=== PATIENT | male | born 1995 | race Caucasian/White ===

== ENCOUNTER 2017-08-04 13:16 | Inpatient (IN) | payer OTHER ==
[~2017-08-04] VITALS: Ht 182.9 cm; Wt 80.0 kg
--- NOTE | 2017-08-04 14:27 | EMERGENCY ROOM VISIT NOTE ---
History Report prepared by [employer]: Cyndi Shay Under the Supervision of: Dr. Scooby Kaye M.D. First contact with patient: 13:49 Chief Complaint: MENTAL HEALTH EVALUATION Stated Complaint: MR History of Present Illness The patient is a 22 year old male who presents to the Emergency Room for a mental health evaluation. The patient notes that he has had severe anxiety for past couple days. He notes that he feels alienated and isolated. Per top case assembler, the patient is a [employer] student and follows up with [employer] and has been having violent suicidal and homicidal ideations as well as morbid thoughts about killing others. The patient has two roommates who he says he is cordial with. He states he has thoughts about hurting himself but denies having a plan. He has been feeling depressed and has been sleeping through his classes. The patient has been having thoughts of hurting others through a mass shooting. He denies any specific people he is upset with. The patient states he hears his voice and a woman's voice in his mind. He has been hearing these voices for three years. He denies any fevers, abdominal pain, or chest pain, alcohol tobacco or drug use. The patient's mother is coming to the ED and the patient states he has a good relationship with his parent. The patient is is not on medication but he is willing to start taking medications and to be admitted for help. Source of History: patient Position: other (global) Quality: other (mental health evaluation) Modifying Factors (Relieving): other (none) Associated Symptoms: No fevers, No abdominal pain Review of Systems See HPI for pertinent positives & negatives. A total of 10 systems reviewed and were otherwise negative. Past Medical & Surgical Medical Problems: (1) No Known Active Medical Problems Old medical records were reviewed. Nurse's notes were reviewed and I agree with. Social History Smoking Status: Never Smoker Alcohol Use: none Occupation Status: [employer] student Current/Historical Medications No Active Prescriptions or Reported Meds Allergies Coded Allergies: No Known Allergies (Unverified , 08/04/17) Physical Exam Vital Signs Date Time Temp Pulse Resp B/P (MAP) Pulse Ox O2 Delivery O2 Flow Rate FiO2 08/04/17 17:40 78 16 118/65 98 Room Air 08/04/17 13:26 37.1 70 20 123/81 99 Room Air Physical Exam General: Non-ill appearing young cooperative male in no acute distress. HEENT: Normal cephalic atraumatic. Pupils are equal round and reactive to light. Extraocular movements are intact. Oropharynx is pink with moist mucous membranes. No swelling of the mouth lips or tongue. Neck: Supple with a midline trachea. No meningeal signs or stiffness, no JVD or bruits. No Stridor. Chest: Clear to auscultation bilaterally. No wheezes or rhonchi. No increased work of breathing. Heart: regular rate and rhythm. Abdomen: Soft nontender, nondistended without rebound guarding or rigidity. Extremities: No cyanosis clubbing or edema. No calf tenderness or assymetry Spine/Back. Non tender to palpation. No CVA tenderness Skin: Good turgor without rashes. Neurologic exam: Cranial nerves two through 12 are intact. Motor and sensation are intact and symmetrical throughout. Psych: intermittent suicidal and homicidal ideations, hearing voices at times. Medical Decision & Procedures Laboratory Results 08/04/17 14:17 Red Blood Count 5.71, Mean Corpuscular Volume 90.4, Mean Corpuscular Hemoglobin 31.9, Mean Corpuscular Hemoglobin Concent 35.3, Mean Platelet Volume 10.5, Neutrophils (%) (Auto) 62.5, Lymphocytes (%) (Auto) 28.5, Monocytes (%) (Auto) 7.0, Eosinophils (%) (Auto) 1.4, Basophils (%) (Auto) 0.4, Neutrophils # (Auto) 3.05, Lymphocytes # (Auto) 1.39, Monocytes # (Auto) 0.34, Eosinophils # (Auto) 0.07, Basophils # (Auto) 0.02 08/04/17 14:17 Test 08/04/17 13:30 08/04/17 14:17 Urine Opiates Screen NEG (NEG) Urine Methadone, Qualitative NEG (NEG) Urine Barbiturates NEG (NEG) Urine Phencyclidine (PCP) Level NEG (NEG) Ur Amphetamine/Methamphetamine NEG (NEG) MDMA (Ecstasy) Screen NEG (NEG) Urine Benzodiazepines Screen NEG (NEG) Urine Cocaine Metabolite NEG (NEG) Urine Marijuana (THC) NEG (NEG) White Blood Count 4.88 K/uL (4.8-10.8) Red Blood Count 5.71 M/uL (4.7-6.1) Hemoglobin 18.2 g/dL (14.0-18.0) Hematocrit 51.6 % (42-52) Mean Corpuscular Volume 90.4 fL (80-100) Mean Corpuscular Hemoglobin 31.9 pg (25-34) Mean Corpuscular Hemoglobin Concent 35.3 g/dl (32-36) Platelet Count 225 K/uL (130-400) Mean Platelet Volume 10.5 fL (7.4-10.4) Neutrophils (%) (Auto) 62.5 % Lymphocytes (%) (Auto) 28.5 % Monocytes (%) (Auto) 7.0 % Eosinophils (%) (Auto) 1.4 % Basophils (%) (Auto) 0.4 % Neutrophils # (Auto) 3.05 K/uL (1.4-6.5) Lymphocytes # (Auto) 1.39 K/uL (1.2-3.4) Monocytes # (Auto) 0.34 K/uL (0.11-0.59) Eosinophils # (Auto) 0.07 K/uL (0-0.5) Basophils # (Auto) 0.02 K/uL (0-0.2) RDW Standard Deviation 42.8 fL (36.4-46.3) RDW Coefficient of Variation 12.9 % (11.5-14.5) Immature Granulocyte % (Auto) 0.2 % Immature Granulocyte # (Auto) 0.01 K/uL (0.00-0.02) Anion Gap 3.0 mmol/L (3-11) Est Creatinine Clear Calc Drug Dose 111.1 ml/min Estimated GFR () 108.3 Estimated GFR (Non- 93.4 BUN/Creatinine Ratio 10.0 (10-20) Calcium Level 9.0 mg/dl (8.5-10.1) Total Bilirubin 2.0 mg/dl (0.2-1) Direct Bilirubin 0.3 mg/dl (0-0.2) Aspartate Amino Transf (AST/SGOT) 17 U/L (15-37) Alanine Aminotransferase (ALT/SGPT) 29 U/L (12-78) Alkaline Phosphatase 107 U/L (45-117) Total Protein 8.0 gm/dl (6.4-8.2) Albumin 4.4 gm/dl (3.4-5.0) Lipase 182 U/L (73-393) Thyroid Stimulating Hormone (TSH) 1.260 uIu/ml (0.300-4.500) Ethyl Alcohol mg/dL < 3.0 mg/dl (0-3) Laboratory studies as stated above per my review. ED Course 1354: Past medical records reviewed. The patient was evaluated in room A5, and a complete history and physical examination were performed. 1602: The top case assembler is talking to the patient. 1630: 3 south is evaluating the patient. 1734: 3 south is accepting the patient. Medical Decision Differential diagnoses: Depression, anxiety, suicidal ideation, homicidal ideations. This patient comes in as described above. He was brought in after he's been hearing voices and having suicidal and homicidal ideations. He seems very cooperative initially and is voluntary. Blood work was obtained for medical clearance. He does not smoke drink or use drugs he tells me. He has no acute electrolyte or metabolic abnormality. He has nothing to suggest acute toxicologic or infectious process. He has had no trauma. He was further evaluated by our psychiatric case management team. He will be admitted voluntarily to our inpatient psychiatric unit for further treatment and evaluation. Medication Reconcilliation Current Medication List: was personally reviewed by me Blood Pressure Screening Patient's blood pressure: Normal blood pressure Impression Primary Impression: Depression Additional Impressions: Anxiety Homicidal ideations Scribe Attestation The scribe's documentation has been prepared under my direction and personally reviewed by me in its entirety. I confirm that the note above accurately reflects all work, treatment, procedures, and medical decision making performed by me. Departure Information Dispostion Being Evaluated By Hospitalist Prescriptions No Active Prescriptions or Reported Meds Referrals No Doctor, Assigned (PCP) Patient Instructions My [facility] Problem Qualifiers
[2017-08-04 14:36] LABS: BASO % 0.4 %; BASO ABS # 0.02 K/uL (0-0.2); COMPLETE YES; EOS % 1.4 %; HEMATOCRIT 51.6 % (42-52); IG% 0.2 %; LYMPH % 28.5 %; LYMPH ABS # 1.39 K/uL (1.2-3.4); MEAN CELL VOLUME 90.4 fL (80-100); MEAN CORPUSCULAR HEMOGLOBIN 31.9 pg (25-34); MEAN CORPUSCULAR HGB CONC 35.3 g/dl (32-36); MEAN PLATELET VOLUME 10.5 fL (7.4-10.4); NEUT % 62.5 %; PLATELET COUNT 225 K/uL (130-400); RED BLOOD COUNT 5.71 M/uL (4.7-6.1); WHITE BLOOD COUNT 4.88 K/uL (4.8-10.8)
[2017-08-04 14:46] LABS: BENZODIAZEPINE, URINE NEG (NEG); COCAINE,URINE NEG (NEG); PHENCYCLIDINE, URINE NEG (NEG)
[2017-08-04 14:56] LABS: CREATININE 1.12 mg/dl (0.60-1.40); POTASSIUM 4.4 mmol/L (3.5-5.1)
[2017-08-04 15:06] LABS: THYROID STIMULATING HORMONE 1.26 uIu/ml (0.300-4.500)
[2017-08-04] MEDS ORDERED: NURSING VERBAL MED ORDER ONE (17:15)
[2017-08-04 17:40] VITALS: O2SAT 98
[2017-08-04] MEDS ORDERED: ACETAMINOPHEN 325 MG TAB PO PRN (17:45)
[2017-08-04] MEDS ORDERED: MAGNESIUM HYDROXIDE SUSP 30 ML UDC PO PRN (17:45)
[2017-08-04] MEDS ORDERED: SODIUM CHLORIDE 0.65% NA SOLN 45 ML (OCEAN) PRN (17:45)
[2017-08-04] MEDS ORDERED: hydrOXYzine HCL 25 MG TAB PO PRN ×2 (17:45)
[2017-08-04] MEDS ORDERED: BISMUTH SUBSALICYLATE PER ML OMNICELL CHARGE PO PRN (17:45)
[2017-08-04] MEDS ORDERED: ALUMINUM/MAGNESIUM SUSP 30 ML UDC PO PRN (17:45)
[2017-08-04 18:24] VITALS: BP 113/68; PULSE 67; TEMP 36.8; Ht 182.9 cm; Wt 80.0 kg
[2017-08-05 06:58] VITALS: BP 106/66; PULSE 65; PULSE 93; TEMP 36.5
[2017-08-05] MEDS ORDERED: BENZTROPINE MESYLATE 1 MG TAB PO PRN (10:45)
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
[2017-08-05] MEDS: RISPERIDONE 1 MG TAB PO PRN (15:40)
[2017-08-05] MEDS ORDERED: RISPERIDONE 1 MG TAB PO SCH (22:00)
[2017-08-06 06:49] VITALS: BP_SYST 104; BP_SYST 115; BP_DIAS 65; BP_DIAS 68; PULSE 101; PULSE 64; TEMP 36.4
[2017-08-06 08:35] LABS: CHOLESTEROL/HDL RATIO 3.4
[2017-08-06] MEDS: RISPERIDONE 1 MG TAB PO PRN (16:40)
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
[2017-08-06] MEDS ORDERED: RISPERIDONE 1 MG TAB PO SCH (22:00)
[2017-08-07 06:51] VITALS: BP_SYST 97; BP_SYST 99; BP_DIAS 57; BP_DIAS 60; PULSE 66; PULSE 97; TEMP 36.3
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
[2017-08-07] MEDS: RISPERIDONE 1 MG TAB PO SCH (21:41)
[2017-08-08 06:46] VITALS: BP_SYST 101; BP_SYST 111; BP_DIAS 64; BP_DIAS 67; PULSE 80; PULSE 93; TEMP 36.4
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
[2017-08-08] MEDS: RISPERIDONE 1 MG TAB PO SCH (21:23)
[2017-08-09 06:46] VITALS: BP_SYST 104; BP_SYST 99; BP_DIAS 61; BP_DIAS 62; PULSE 69; PULSE 98; TEMP 36.4
--- NOTE | 2017-08-09 13:26 | Psychiatric Progress Notes ---
Progress Note Date of Service Aug 09, 2017. Interval History Adal Mahoney is a 22-year-old male [employer] who lives [place] campus, his parents live in [place], [place]. Adal Mahoney was admitted on a 201 voluntary commitment. Patient is admitted from home after [facility] therapist recommended he go to the ED for homicidal thoughts and plans. The patient was brought to the ED by [employer] police. Chief Complaint "Going pretty well". Subjective Patient was seen & assessed interval progress reviewed with Nursing. Staff report the patient is often vague when answering questions, but reports that his symptoms are improving. He continues to endorse auditory hallucinations of a "soothing female voice," which he likes, and does not want to lose. The high school social science teacher spoke to his mother, who is trying to normalize his symptoms. His parents are staying locally until he is discharged, and support him returning to school. They would like to attend his meeting with student care and advocacy after discharge. His mother also agreed to secure guns in the home so that the patient would not have access to them. Today the patient states he is doing well, has been talking about "different social skills for one to develop, what to expect and not to expect." He says this applies to him because he has always had difficulty developing relationships, and would like to be better at that. He struggles with starting and continuing conversation, but has been able to practice it here. His auditory hallucinations continue to decrease, and for the past day "only pop up a little bit," and he told it "to shush." He says he likes the female voice, but "not the bad voice." He was able to tell the voice to leave him alone, and it worked. He says it will say "a bunch of garbage." Denies that it commands him. Thinks medication is also helping to slow and clear his thoughts. Denies any thoughts about hurting himself or anyone else since yesterday, and the thoughts are getting less intense. Denies side effects to medication. He feels he will be ready to go home tomorrow, and asks appropriate questions about the discharge process. Review of Systems Respiratory: + problem reported (sinuses felt clogged last night, better now) Abdomen: + problem reported Neurologic: No memory loss, No paralysis, No weakness, No numbness/tingling, No vertigo, No balance problems, No problem reported Sleep Information Total Hours of Sleep: 7.00 Meal Information Percent of Breakfast Consumed: 100 Percent of Lunch Consumed: 100 Percent of Dinner Consumed: 100 Mental Status Exam During interview pt is: alert and oriented, cooperative, other (calm, polite) Appearance: appropriately dressed, appropriately groomed Eye contact is: good Motor behavior is: steady gait & station, no abnormal motor movements Speech: normal in rate, rhythm & volume Affect: euthymic (incongruent to subject matter at times (for example, when discussing thoughts of harming others)) Mood is: other ("pretty good") Thought process: goal directed (at times answers in a vague way that is difficult to follow, but is able to clarify when asked) Thought content: reality based without delusions Suicidal thought are: denied Homicidal thoughts are: denied Hallucinations: auditory (auditory hallucinations of voices, which have decreased in frequency and intensity since admission), denies visual Cognition: memory grossly intact, attention grossly intact, language grossly intact Intelligence estimated to be: consistent with level of education Insight: limited Judgement: fair Summary of Past History Eval 2014 records given to unit. In summary, eval indicated past concerns of Autism and ADHD had been previously ruled out without clarification of full extent of doing so with heel lift gouger in 2014 being unable to fully rule out Asperger's diagnosis with noticing some speech and language deficits and not seeing concerns of ADHD. Psychoeducational report from February 2014 by Chandana Valentine, Ph.D. reviewed. Evaluation was to identify underlying causes of challenges with social and educational functioning. The patient was 18 and a high school senior at this time. He was referred by his parents and a previous therapist, due to concerns for autism spectrum disorder, and the family wondered about ADHD. He had a history of previously diagnosed speech and language processing issues. The family wanted him to be given educational accommodations in college. His parents reported that he met most developmental milestones on time, but had speech problems where he appeared to understand but could only speak individual words at age 5. He received speech therapy in first grade. He did not receive any other special services in school, had a 3.5 GPA during his senior year in high school. He had a good relationship with his family, and some mild challenges with peers, as he did not have many close friends. His full scale IQ was 112, although he scored in the very superior or gifted range with perceptional reasoning, and in the average range for other domains. Testing confirmed that his slower processing speed was not related to ADHD, and did not find evidence of autism spectrum disorder. Recommendations for accommodations were made. Impression 22 y/o male with 2-3 year history of auditory hallucinations predating mood symptoms with increase in morbid preoccupation around shootings in the media. He denies active intent but has been in "planning" stage, in that he researches tactical gear, gas masks, etc online and seems socially disconnected with lack of empathy around why such acts/comments are inappropriate. His affect is grossly inappropriate to the content of his thoughts and there is suggestion of paranoia. Differential includes unspecified psychotic disorder, depression with psychotic features, OCD, and other cause of psychosis. There is no evidence of kylah. He denies a history of OCD. Plan (1) Unspecified psychosis am following admission (08/05)-- The patient is admitted to [facility]) on q 15 min checks (behavioral with suicide precautions) for safety. The patient will participate in group, recreational and milieu therapies and will be offered additional individual and family sessions as clinically appropriate. will start Risperdal 1mg qHS as mood stabilization and to target voices. Risks/ benefits/alternative treatments were reviewed re: antipsychotics for mood and/ or psychosis. Discussion included but was not limited to metabolic side effects , risks of TD and suicidal thoughts. Baseline AIMS=0. Fasting glucose and lipid panel ordered (if not on file) for baseline monitoring. Risperdal 1mg BID prn written for anxiety/agitation; Cogentin 1mg BID prn muscle spasm. FABIO for communication with [facility]/[place] for safety planning around his return to campus 08/06 - raised risperdal to 1.5mg hs plus 1mg prn bid doses maintained, consider adding SSRI for depressive symptoms and obsessive compulsive aspects of psychotic processes. will focus on risperdal for now but if depressive symptoms remain and/or more OCD aspects are clarified will consider adding a SSRI 08/07 - raised risperdal to 2mg hs maintaining 1mg prn up to bid doses for now. nl fasting labs reviewed with pt given question of autism spectrum concerns in 2013, it is possible that pt has been having prodromal symptoms that have progressed to current symptoms over time. Pt's psychotic presentation does have a obsessive presentation to it which is common in psychosis but does warrant continue exploration for OCD as a comorbid concern. mood is improving, intrusive images and processing resolving as presentation improving, holding any SSRI for now. reviewed previous 2013 assessment 08/08 - symptoms are improving, continue risperidone 2 mg daily at bedtime. - Second family meeting to be scheduled with parents to review the patient's discharge plans, with specific emphasis on the safety plan, including recommendations that the family's guns be kept locked and secured so that he would not have access to them. - Outpatient follow-up being arranged at [facility] with both a therapist and psychiatrist. - Continue participation in unit groups and programming, working on healthy coping skills and his discharge safety plan. 08/09 - Symptoms continued to improve, and we are working on discharge planning. Parents have confirmed that they will lock the guns and he will not have access to them. Discharge / Aftercare Planning Primary Care Physician: Name: [facility] Appointment Notes: As needed Psychiatrist: Name: CARLOS Appointment Notes: You will be scheduled for follow up for meds after your appt with Teo. Therapist: Name: Teo Denney [facility] Date of Appointment: Aug 11, 2017 Time of Appointment: 4pm Visit Code E&M Code: 89163 Inventory Assets Strengths: reports positive relationship with family, willingness for treatment Needs: improve social skills and ability to redirect thoughts Risk Factors Assessment Male: Yes : Yes /single/: Yes Higher / Fall in social status: No Access to guns: No Health problems: No Mental Health Diagnoses: Yes Substance use disorders: No Previous attempt: No Previous psychiatric stay: No Hopelessness: No Protective Factors Assessment Jain beliefs: Yes : No Responsible for young children: No Employed: No Stable relationships: Yes Supportive family: Yes Good rapport with provider: Yes Data Vital Signs Last 24 Hrs: Date Time Temp Pulse Resp B/P (MAP) Pulse Ox O2 Delivery O2 Flow Rate FiO2 08/09/17 06:46 36.4 69 16 104/62 98 99/61 Meds Administered Last 24 Hrs: Meds Administered (Past 24Hrs) Medications (Trade) Dose Ordered Sig/Janet Route Start Time Stop Time Status Last Admin Dose Admin Risperidone (Risperdal Tab) 2 mg HS PO 08/07/17 22:00 09/04/17 21:59 08/08/17 21:23 2 MG
[2017-08-09] MEDS: RISPERIDONE 1 MG TAB PO SCH (21:44)
[2017-08-10 06:54] VITALS: BP_SYST 111; BP_SYST 113; BP_DIAS 60; BP_DIAS 67; PULSE 52; PULSE 91; TEMP 36.4
[2017-08-10] MEDS ORDERED: RISP2TAB21 PO (09:03)
[2017-08-10] MEDS ORDERED: RSP1 PO (09:04)
--- NOTE | 2017-08-10 09:32 | Discharge Instructions ---
Discharge Information Report Includes Report will include the: Discharge Instructions & Summary Admission Admission Date / Time: Aug 04, 2017 at 17:18 Reason for Admission: Major Depression With Psychotic Features Discharge Discharge Diagnosis / Problem: Psychosis not otherwise specified Condition at Discharge: Good Discharge Goals Goal(s): Improve function, Improve disease control, Learn about illness, Therapeutic intervention Activity Recommendations Activity Limitations: per Instructions/Follow-up section . Instructions / Follow-Up Instructions / Follow-Up . SPECIAL CARE INSTRUCTIONS: 1. Follow through with your scheduled aftercare appointments. If unable to keep an appointment, please call to reschedule. 2. Take your medication only as prescribed. Medication should not be changed or stopped without the approval of your doctor. In the event of worsening symptoms or concerns about side effects, contact your doctor immediately. 3. Utilize new healthy coping skills, anger management skills, and stress management skills learned during your hospitalization. Journal feelings and process them with a support person. Identify stressors or situations that may result in relapse, deterioration or inappropriate behaviors and develop a plan to deal with those issues. 4. If your coping skills are ineffective and you are in crisis, contact your outpatient providers for direction. If unable to reach your providers, please call the CAN HELP LINE AT or go to the closest Emergency Room. 5. Avoid alcohol and un-prescribed drugs. 6. You have been provided with the Mental Health Advance Directives Pamphlet for your review. AFTERCARE APPOINTMENTS: * Please call your insurance company prior to your scheduled appointment to confirm your aftercare providers are covered. Take your insurance information to your appointments. . Discharge / Aftercare Planning Primary Care Physician: Name: [facility] Appointment Notes: As needed Psychiatrist: Name: CARLOS Appointment Notes: You will be scheduled for follow up for meds after your appt with Teo. Therapist: Name Of Therapist: Teo Denney CAPS Date of Appointment: Aug 11, 2017 Time of Appointment: 4pm Other: Name of Appointment #1: [facility]ocacy Appointment #1 Notes: [address] [place], [place] [address]e [facility] . Follow-Up Care Plan for Follow-Up Care: See above. Current Hospital Diet Patient's current hospital diet: Regular Diet Discharge Diet Recommended Diet: Regular Diet Procedures Procedures Performed: No Pending Studies Pending Studies at Discharge: No Medical Emergencies . Who to Call and When: Medical Emergencies: For questions or emergencies related to your hospital stay, please contact the Inpatient Behavioral Health Unit at [phone]. A armor reconnaissance vehicle crewman is on-call 18/04 for the Behavioral Health Unit for emergencies At any time you feel your situation is an emergency, you may also call 911 immediately. . Non-Emergent Contact Non-Emergency issues call your: Psychiatrist, Therapist Advance Directives Existing Advance Directive: No Do You Have an Existing Mental: No Existing Living Will: No Existing Power of Production Lapping Machine Operator: No Advance Directives Info Given: To Pt/S.O. Advance Directives Reason: Declines as Mental Health Visit. 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. Pt reportedly went for meeting with his financial advisor trainee and expressed increased anxiety for the past week. Psychiatric evaluation was recommended after pt reported voices that suggested the pt commit a mass shooting and pt admitted some internet research into mass shootings, tactile defense, and ways to protect oneself. Pt reports that he feels has chronically felt isolated and alienated within the context of social situations. He reports he often feels a "sensation of being unwelcome" around his fellow classmates, even those he knows well. I feels he is a "complex person" and that most people are "unable to relate" to him, though he greatly desires this type of companionship. He focuses heavily on an individual's response when he does "good things" (ex. helping someone fix their bike) and feels discouraged when he does not receive the "affection" he desires for his deeds. He reports, despite meeting with a young-adult [employer] group 3 + times a week, that he "sometimes feels connected with people, and at other times not at all". He denies lillian paranoia but makes comments about needing to "protect himself". Pt reports depressive symptoms for the past "several years" with anxiety worsening over the last week. He states he has been hearing voices in his head for the past three years. One voice, a female, is calm and comforting and "helpful when I'm not receiving the affection I desire from people". The other , a male voice, the patient describes as sounding like himself is "evil" and states this voice prompts him to consider acts of violence. He believes that he is suggestible to new media but stops short of endorsing ideas of reference. The pt denies specific "commands" but states, when prompted by news stories or social media, with say "that's something you could do". Reports, "the voice with show me what I could do as opposed to telling me to do it." Pt reports the voices are almost always referencing a a present event as a trigger. Pt denies evolution in these voices over time. Pt reported to staff that he had been researching mass shootings on the internet, but upon evaluation reports his curiosity is in terms of defense - "How would I protect myself, how could I protect someone else if something happened?". When asked why he didn't act on these thoughts he stated, "It was just early planning stages". He states he has been missing classes lately both due to issues with operating his alarm as well as occasionally feeling he "lacks the attention necessary to get through class" that day. He denies consequences to his absences thus far and states he is still doing well in school. Most recent GPA is a 2.8 and he reports he is on track to graduate in January despite dropping one class due to the additional stress. Pt reports he would most like to find ways to "start conversations with people so I can feel connected". He is interested in taking steps to engage with others more fully and is oriented to future goals. 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 Pt has minimal psychiatric history with no current diagnosis or medications. He has been seen by a therapist "Daniela" while at [facility] in [place], and is now following with Teo Candelario at [facility]. Pt has no prior inpatient hospitalizations and no past psychiatrist. He admits to previous consideration of suicide attempt, but denies ever having a plan or taking steps to carry out. Denies current SI/HI, visual hallucinations, paranoia, OCD, or manic symptoms. Admission Exam Per the Admitting provider: Please see admission H&P. Consultations None Hospital Course (1) Unspecified psychosis am following admission (08/05)-- The patient [facility] ([facility] health unit) on q 15 min checks (behavioral with suicide precautions) for safety. The patient will participate in group, recreational and milieu therapies and will be offered additional individual and family sessions as clinically appropriate. will start Risperdal 1mg qHS as mood stabilization and to target voices. Risks/ benefits/alternative treatments were reviewed re: antipsychotics for mood and/ or psychosis. Discussion included but was not limited to metabolic side effects , risks of TD and suicidal thoughts. Baseline AIMS=0. Fasting glucose and lipid panel ordered (if not on file) for baseline monitoring. Risperdal 1mg BID prn written for anxiety/agitation; Cogentin 1mg BID prn muscle spasm. FABIO for communication with [facility] for safety planning around his return to campus 08/06 - raised risperdal to 1.5mg hs plus 1mg prn bid doses maintained, consider adding SSRI for depressive symptoms and obsessive compulsive aspects of psychotic processes. will focus on risperdal for now but if depressive symptoms remain and/or more OCD aspects are clarified will consider adding a SSRI 08/07 - raised risperdal to 2mg hs maintaining 1mg prn up to bid doses for now. nl fasting labs reviewed with pt given question of autism spectrum concerns in 2013, it is possible that pt has been having prodromal symptoms that have progressed to current symptoms over time. Pt's psychotic presentation does have a obsessive presentation to it which is common in psychosis but does warrant continue exploration for OCD as a comorbid concern. mood is improving, intrusive images and processing resolving as presentation improving, holding any SSRI for now. reviewed previous 2013 assessment 08/08 - symptoms are improving, continue risperidone 2 mg daily at bedtime. - Second family meeting to be scheduled with parents to review the patient's discharge plans, with specific emphasis on the safety plan, including recommendations that the family's guns be kept locked and secured so that he would not have access to them. - Outpatient follow-up being arranged at [facility] with both a therapist and psychiatrist. - Continue participation in unit groups and programming, working on healthy coping skills and his discharge safety plan. 08/09 - Symptoms continued to improve, and we are working on discharge planning. Parents have confirmed that they will lock the guns and he will not have access to them. 08/10 - Auditory hallucinations of voices are significantly improved, only present briefly, and less intense. Patient feels they are manageable at their current level, and requested to have a prn of risperidone available if needed. Rx provided for risperidone 2mg qhs and 1mg bid prn hallucinations/anxiety. - Parents will fruit or nut picker today. Encouraged patient to attend meeting with [employer] [facility]. - Has appointment with therapist Teo Chavez today, and will be assigned a psychiatrist at [facility]. SW to call [facility] and determine if there are any other mental health services available through the school that he might benefit from - groups or programs to assist with socialization? Risk Factors Assessment Male: Yes : Yes /single/: Yes Higher / Fall in social status: No Access to guns: No Health problems: No Mental Health Diagnoses: Yes Substance use disorders: No Previous attempt: No Family history of suicide: No Previous psychiatric stay: No Hopelessness: No Smoker: No Protective Factors Assessment Yazidi beliefs: Yes : No Responsible for young children: No Employed: No Stable relationships: Yes Supportive family: Yes Good rapport with provider: Yes Absence of risk factors above: Yes (Risk factors were mitigated by admission to the inpatient unit, treating psychotic symptoms with antipsychotic medication , involving the patient in group and therapy on the unit, involving his parents in his treatment and having a family meeting, ensuring that their guns are locked and secured and that the patient will not have access to them, coordinating with the [facility] and ensuring outpatient mental health services , exploring options for additional supports on campus, educating the patient about his symptoms and diagnosis and the recommended treatment, working on healthy coping skills and a discharge safety plan. The patient's auditory hallucinations have improved significantly, and he feels they are manageable at their current level. He has been calm and cooperative throughout his stay, is denying thoughts of harming himself or others, and is able to review his safety plan in detail. He never identified specific target, so there is no duty to warn. He feels he will be able to seek help if his intrusive thoughts of harming himself or others return, and as he is no longer at acute risk of harm to himself or others, he can be discharged and managed as an outpatient at this time.) Day of Discharge Assessment Hospital course: On admission, the patient was started on risperidone 1 mg daily at bedtime for psychosis. He tolerated this well, and was increased to 2 mg daily at bedtime. He also had an as needed dose of 1 mg. Collateral information was gathered from his parents and from a psychoeducational report from February 2014, which was performed 2 try to identify underlying causes of his challenges with social and educational functioning and to make recommendations for academic accommodations in preparation for him to go to college. The psychological testing performed did not identify ADHD or autism spectrum disorder as underlying causes of his issues. It is possible that the patient had been experiencing prodromal symptoms that were not detected because of his limited social functioning, and that his current symptoms represent a primary thought disorder. He did not appear to have significant mood symptoms in the hospital, and a primary mood disorder was felt to be less likely. There was an obsessive component noted with his intrusive thoughts of harming others, which raised the possibility of comorbid OCD, although he did not meet full criteria for this. Care was coordinate it with the [facility], including his therapist at [facility] and he was encouraged to follow-up with the office of student care and advocacy. A family meeting was held with the patient and his parents on 08/05/2017. His mother reported that he had been diagnosed with a language processing disorder and thought that he might benefit from disability services and a wildlife conservation officer. The patient described difficulties with social interactions and a history of being bullied in school. He was able to explain his recent symptoms, including auditory hallucinations of a female voice and a male voice, and negative thoughts. He talked about his concerns about social change and his baptist beliefs. His parents confirm that there was no family history of a primary thought disorder, although mother has had issues with anxiety and father with anger. Options for a medical withdrawal versus returning to school were explored, and the patient stated he wanted to continue with school. His parents were supportive of him taking medication. His parents described him as a kind and gentle person who has a tendency to be taken advantage of or bullied. They confirmed that he does not have guns or weapons, and they agreed to lock the firearms that they have at home so that he would not have access. Adal did well on the unit, interacted appropriately with staff and peers, and participated in groups and therapy on the unit. He had visits from his parents and a friend, and felt they were supportive. He spends his free time out of his room playing games with peers or drawing. He consistently reported good mood, and did not appear depressed. He was performing his ADLs independently, eating and sleeping well, and maintained good hygiene and grooming. His auditory hallucinations decreased in both frequency and intensity throughout the course of his stay, and he felt able to manage them by the time of discharge. He was able to talk in depth about his thoughts of harming others, and stated that he did not think he would ever act on these thoughts. He was encouraged to follow up with his outpatient therapist and to explore ways to increase his socialization on campus and to continue to work on his social skills, as he did very well on the unit socializing with peers, but indicated that this has been a long-standing area of difficulty for him. Day of discharge assessment: The patient states that his mood is "good," and he has not had suicidal thoughts here. He feels the medication is helping for his thoughts, and states that the voices have decreased and are present only briefly during the day, and he feels able to tell them to stop, and they leave him alone. He denies command auditory hallucinations and thoughts of harming others. He denies paranoia, ideas of reference, thought blocking, and disorganized thoughts. He denies side effects to the medication, and would like to continue it after discharge. He is requesting to have a when necessary dose available as well in case he needs it. He is able to review his safety plan in detail, and denies any safety concerns with discharge today. His parents will be picking him up, and he will be following up with his outpatient therapist tomorrow. He is looking forward to returning to school, and will be going home for the winter break. He recognizes that developing relationships with others has been difficult for him and is something he wants to continue to work on. Well nourished, well developed WM appearing stated age. Casually dressed and adequately groomed. Calm and cooperative. Seated in NAD, with fair eye contact and no abnormal movements. Speech is normal rate, volume, and tone. Mood is "good," and affect is stable and congruent. Thoughts are linear, logical and goal directed. The patient denied suicidal and homicidal ideation and was able to safety plan. No paranoia or delusions. Auditory hallucinations are much improved, and present only briefly during the last couple of days. He did not appear to be responding to internal stimuli. Cognition was grossly intact. Alert and oriented to person, place and time. Intelligence is consistent with level of education. Insight and and judgment are fair. Laboratory Test 08/04/17 13:30 08/04/17 14:17 08/06/17 07:24 Urine Opiates Screen NEG Urine Methadone, Qualitative NEG Urine Barbiturates NEG Urine Phencyclidine (PCP) Level NEG Ur Amphetamine/Methamphetamine NEG MDMA (Ecstasy) Screen NEG Urine Benzodiazepines Screen NEG Urine Cocaine Metabolite NEG Urine Marijuana (THC) NEG White Blood Count 4.88 Red Blood Count 5.71 Hemoglobin 18.2 Hematocrit 51.6 Mean Corpuscular Volume 90.4 Mean Corpuscular Hemoglobin 31.9 Mean Corpuscular Hemoglobin Concent 35.3 Platelet Count 225 Mean Platelet Volume 10.5 Neutrophils (%) (Auto) 62.5 Lymphocytes (%) (Auto) 28.5 Monocytes (%) (Auto) 7.0 Eosinophils (%) (Auto) 1.4 Basophils (%) (Auto) 0.4 Neutrophils # (Auto) 3.05 Lymphocytes # (Auto) 1.39 Monocytes # (Auto) 0.34 Eosinophils # (Auto) 0.07 Basophils # (Auto) 0.02 RDW Standard Deviation 42.8 RDW Coefficient of Variation 12.9 Immature Granulocyte % (Auto) 0.2 Immature Granulocyte # (Auto) 0.01 Sodium Level 137 Potassium Level 4.4 Chloride Level 104 Carbon Dioxide Level 30 Anion Gap 3.0 Blood Urea Nitrogen 11 Creatinine 1.12 Est Creatinine Clear Calc Drug Dose 111.1 Estimated GFR () 108.3 Estimated GFR (Non- 93.4 BUN/Creatinine Ratio 10.0 Random Glucose 88 Calcium Level 9.0 Total Bilirubin 2.0 Direct Bilirubin 0.3 Aspartate Amino Transferase (AST) 17 Alanine Aminotransferase (ALT) 29 Alkaline Phosphatase 107 Total Protein 8.0 Albumin 4.4 Lipase 182 Thyroid Stimulating Hormone (TSH) 1.260 Ethyl Alcohol mg/dL < 3.0 Fasting Glucose 87 Triglycerides Level 78 Cholesterol Level 183 HDL Cholesterol 54 LDL Cholesterol, Calculated 113 VLDL Cholesterol, Calculated 16 Cholesterol/HDL Ratio 3.4 Total Time Total Time Spent (min): Greater than 30 minutes Total Time Included: examination of the patient, discharge planning, medication reconciliation, and (treatment team discussion) Tobacco Cessation at Discharge Smoking Status: Never Smoker FDA approved Prescription: non-smoker
== END 2017-08-10 11:25 | disposition home or self-care (01) | DRG 885 ==
LOC: C.EDA 13:20 → C.MHU 17:18
PROVIDERS: ADMIT Psychiatry & Neurology Psychiatry; ATTEND Psychiatry & Neurology Child & Adolescent Psychiatry
DX: F29 Unspecified psychosis not due to a substance or known physiological condition (principal)

== ENCOUNTER 2017-10-10 11:15 | Emergency (ER) | payer BC, OTHER ==
[~2017-10-10] VITALS: Ht 182.9 cm; Wt 82.4 kg
[~2017-10-10 11:15] MED LIST: RISP2TAB21 PO; RSP1 PO
[2017-10-10 11:18] VITALS: TEMP 36.7; Ht 182.9 cm; Wt 82.4 kg
[2017-10-10] MEDS ORDERED: OPTIRAY 320 IV PRN (12:00)
--- NOTE | 2017-10-10 12:07 | DIAGNOSTIC IMAGING REPORT ---
CHEST ONE VIEW PORTABLE HISTORY: 22 years-old Male CHEST PAIN acute atypical chest pain COMPARISON: None available TECHNIQUE: AP view of the chest FINDINGS: The cardiomediastinal and hilar silhouettes are within normal limits. No pneumothorax, pleural effusion, focal airspace consolidation or overt pulmonary edema. Bones of the chest appear grossly intact. IMPRESSION: No acute process. The above report was generated using voice recognition software. It may contain grammatical, syntax or spelling errors. Electronically signed by: Reji Chang M.D. 10/10/2017 12:06 PM Dictated Date/Time: 10/10/2017 12:05 PM
[2017-10-10] MEDS ORDERED: ESCI1TAB6 PO (12:14)
[2017-10-10 12:18] LABS: BASO % 0.4 %; BASO ABS # 0.03 K/uL (0-0.2); EOS % 0.3 %; EOS ABS # 0.02 K/uL (0-0.5); HEMATOCRIT 47.8 % (42-52); HEMOGLOBIN 16.3 g/dL (14.0-18.0); IG# 0.02 K/uL (0.00-0.02); LYMPH % 13.8 %; LYMPH ABS # 0.95 K/uL (1.2-3.4); MEAN CELL VOLUME 90.2 fL (80-100); MEAN CORPUSCULAR HEMOGLOBIN 30.8 pg (25-34); MEAN CORPUSCULAR HGB CONC 34.1 g/dl (32-36); MEAN PLATELET VOLUME 10.3 fL (7.4-10.4); MONO % 4.8 %; MONO ABS # 0.33 K/uL (0.11-0.59); NEUT % 80.4 %; NEUT ABS # 5.53 K/uL (1.4-6.5); PLATELET COUNT 228 K/uL (130-400); RED CELL DISTRIBUTION WIDTH CV 12.9 % (11.5-14.5); RED CELL DISTRIBUTION WIDTH SD 42.1 fL (36.4-46.3); WHITE BLOOD COUNT 6.88 K/uL (4.8-10.8)
[2017-10-10 12:22] LABS: BLOOD UREA NITROGEN 13 mg/dl (7-18); CALCIUM 9.5 mg/dl (8.5-10.1); CARBON DIOXIDE 28 mmol/L (21-32); CREATININE 1.11 mg/dl (0.60-1.40); GLUCOSE 92 mg/dl (70-99); POTASSIUM 3.9 mmol/L (3.5-5.1); SODIUM 137 mmol/L (136-145)
[2017-10-10 12:45] LABS: INR 1.1 (0.9-1.1); PTT PATIENT 26.1 SECONDS (21.0-31.0)
--- NOTE | 2017-10-10 12:49 | EMERGENCY ROOM VISIT NOTE ---
History Report prepared by Boyibsilvia: Ottoniel Plasencia Under the Supervision of: Dr. Wing Santos M.D. First contact with patient: 11:27 Chief Complaint: CHEST PAIN Stated Complaint: TIGHTNESS IN CHEST (HEART) BLOOD WHEN CLEARING RAMON History of Present Illness The patient is a 22 year old white male with a past medical history of depression who presents to the ED with a cc of persistent chest pain beginning a week ago. Describes his pain as a feeling of "pressure". Positive cough. Has noticed small amounts of dried blood in his cough. Negative nausea, vomiting or SOB. He has taken Zantac for his pain. Pain comes on randomly. Pain improves with exertion. Not on blood thinners. Patient is on Lexapro and Risperidone. Source of History: patient Onset: a week ago Position: chest Quality: pressure Timing: other (persistent) Modifying Factors (Relieving): exertion Associated Symptoms: + cough, No SOB, No nausea, No vomiting Review of Systems See HPI for pertinent positives and negatives. A total of ten systems were reviewed and were otherwise negative. Past Medical & Surgical Medical Problems: (1) Depression (2) Unspecified psychosis Family History No pertinent family history stated. Social History Smoking Status: Never Smoker Alcohol Use: none Occupation Status: [employer] student Current/Historical Medications Scheduled Escitalopram Oxalate (Lexapro), 5 MG PO DAILY Risperidone (Risperdal), 1 TAB PO HS Scheduled PRN Risperidone (Risperidone), 1 MG PO BID PRN for hallucinations/anxiety Allergies Coded Allergies: No Known Allergies (Unverified , 08/04/17) Physical Exam Vital Signs Date Time Temp Pulse Resp B/P (MAP) Pulse Ox O2 Delivery O2 Flow Rate FiO2 10/10/17 12:59 68 16 104/51 100 Room Air 10/10/17 12:08 69 10/10/17 11:36 Room Air 10/10/17 11:25 Room Air 10/10/17 11:18 36.7 94 20 117/76 97 Room Air Physical Exam GENERAL: Awake, alert, well-appearing, NAD HENT: Normocephalic, atraumatic. EYES: Normal conjunctiva. Sclera non-icteric. NECK: Supple. No nuchal rigidity. FROM. RESPIRATORY: CTAB, no rhonchi, wheezing, crackles CARDIAC: RRR, no MRG ABDOMEN: Soft, NTND, BS+ MSK: No chest wall TTP, no LE edema NEURO: GCS 15, CN 2-12 intact, moves all 4s on command SKIN: No rash or jaundice noted. Medical Decision & Procedures ER Provider Diagnostic Interpretation: Radiology results as stated below per my review and radiologist interpretation: (CHEST FOR PE) ANGIO WITH FINDINGS: CTA: There is adequate opacification of the pulmonary arteries to the level of the subsegmental branches without convincing evidence of acute pulmonary embolism. thoracic aorta Heart size is normal. CT CHEST: No dominant thyroid nodule is seen, however the thyroid appears mildly heterogeneous. Moderate symmetric bilateral gynecomastia. No pathologically adenopathy by CT size criteria. Mildly prominent AP window lymph nodes are seen measuring up to 8 mm. Residual thymic tissue of the anterior mediastinum. No pneumothorax. Mild dependent subsegmental groundglass opacities suggest atelectasis with trace left pleural effusion. Central airways are patent. The imaged upper abdominal structures are normal. The osseous structures appear intact. IMPRESSION: 1. No acute aortic pathology or evidence of pulmonary thromboembolic disease. 2. Trace left pleural effusion with mild subsegmental dependent bibasilar atelectasis. The above report was generated using voice recognition software. It may contain grammatical, syntax or spelling errors. Electronically signed by: Reji Chang M.D. 10/10/2017 12:53 PM CHEST ONE VIEW PORTABLE FINDINGS: The cardiomediastinal and hilar silhouettes are within normal limits. No pneumothorax, pleural effusion, focal airspace consolidation or overt pulmonary edema. Bones of the chest appear grossly intact. IMPRESSION: No acute process. The above report was generated using voice recognition software. It may contain grammatical, syntax or spelling errors. Electronically signed by: Reji Chang M.D. 10/10/2017 12:06 PM Laboratory Results 10/10/17 11:30 Red Blood Count 5.30, Mean Corpuscular Volume 90.2, Mean Corpuscular Hemoglobin 30.8, Mean Corpuscular Hemoglobin Concent 34.1, Mean Platelet Volume 10.3, Neutrophils (%) (Auto) 80.4, Lymphocytes (%) (Auto) 13.8, Monocytes (%) (Auto) 4.8, Eosinophils (%) (Auto) 0.3, Basophils (%) (Auto) 0.4, Neutrophils # (Auto) 5.53, Lymphocytes # (Auto) 0.95, Monocytes # (Auto) 0.33, Eosinophils # (Auto) 0.02, Basophils # (Auto) 0.03 10/10/17 11:30 Test 10/10/17 11:30 White Blood Count 6.88 K/uL (4.8-10.8) Red Blood Count 5.30 M/uL (4.7-6.1) Hemoglobin 16.3 g/dL (14.0-18.0) Hematocrit 47.8 % (42-52) Mean Corpuscular Volume 90.2 fL (80-100) Mean Corpuscular Hemoglobin 30.8 pg (25-34) Mean Corpuscular Hemoglobin Concent 34.1 g/dl (32-36) Platelet Count 228 K/uL (130-400) Mean Platelet Volume 10.3 fL (7.4-10.4) Neutrophils (%) (Auto) 80.4 % Lymphocytes (%) (Auto) 13.8 % Monocytes (%) (Auto) 4.8 % Eosinophils (%) (Auto) 0.3 % Basophils (%) (Auto) 0.4 % Neutrophils # (Auto) 5.53 K/uL (1.4-6.5) Lymphocytes # (Auto) 0.95 K/uL (1.2-3.4) Monocytes # (Auto) 0.33 K/uL (0.11-0.59) Eosinophils # (Auto) 0.02 K/uL (0-0.5) Basophils # (Auto) 0.03 K/uL (0-0.2) RDW Standard Deviation 42.1 fL (36.4-46.3) RDW Coefficient of Variation 12.9 % (11.5-14.5) Immature Granulocyte % (Auto) 0.3 % Immature Granulocyte # (Auto) 0.02 K/uL (0.00-0.02) Prothrombin Time 11.9 SECONDS (9.0-12.0) Prothromb Time International Ratio 1.1 (0.9-1.1) Activated Partial Thromboplast Time 26.1 SECONDS (21.0-31.0) Partial Thromboplastin Ratio 1.0 Anion Gap 7.0 mmol/L (3-11) Est Creatinine Clear Calc Drug Dose 115.6 ml/min Estimated GFR () 109.4 Estimated GFR (Non- 94.4 BUN/Creatinine Ratio 11.3 (10-20) Calcium Level 9.5 mg/dl (8.5-10.1) Troponin I < 0.015 ng/ml (0-0.045) Pro-B-Type Natriuretic Peptide 39 pg/ml (0-450) Laboratory results reviewed by me ECG Indication: chest pain Rate (beats per minute): 73 Rhythm: normal sinus Findings: T-wave inversion (lead 3. ), other (Normal intervals. Right axis deviation. No other STS change or TWI. ) ED Course 1132: The patient was evaluated in room C1B. A complete history and physical exam was performed. Medical Decision The patient is a 22 year old white male with a past medical history of depression who presents to the ED with a cc of persistent chest pain beginning a week ago. Differential diagnosis: Etiologies such as cardiac ischemia, aortic dissection, pulmonary embolism, pneumonia, pneumothorax, musculoskeletal, infections, pericarditis, myocarditis , esophageal rupture, gastrointestinal, as well as others were entertained. Patient was seen and evaluated at the bedside. Patient did complain of some persistent chest pain that been ongoing for approximately 1 week. Patient also noted some mild hemoptysis. Patient denies any active bleeding. Patient denies smoking. Patient states that he recently did have 2-[address] back to [employer]. Patient denies any other infectious symptoms. Patient denies tobacco use, calf pain, lower extremity swelling. Patient denies any prior history of DVT or PE. Patient does not take any blood thinning medications. Patient did have blood work that was completed, EKG, troponin, BNP, chest x-ray , and CT PE protocol. Patient's EKG did show some right axis deviation as well as single isolated TWI in lead 3. Patient's chest x-ray clear. White blood cell count within normal limits, H&H normal. Coags normal. Patient troponin negative and BNP is not elevated. Given neg trop and non-ischemic EKG, unlikely ACS given H&P and lack of risk factors. Patient's CT PE protocol was negative for pulmonary emboli. Given the affirmation patient was deemed suitable for outpatient follow-up and treatment. Patient was told to follow-up with [facility] as needed. Patient was given strict follow-up, discharge, and return precautions. All questions were answered. Patient was deemed suitable for outpatient follow-up at this time. Patient agreed with the plan of care and was safely discharged home. The chart was completed utilizing [employer] voice recognition software. Grammatical errors, random word insertions, pronoun errors, and incomplete sentences are an occasional consequence of this system due to software limitations, ambient noise, and hardware issues. Any formal questions or concerns about the content, text, or information contained within the body of this dictation should be directly addressed to the physician for clarification. Medication Reconcilliation Current Medication List: was personally reviewed by me Blood Pressure Screening Patient's blood pressure: Normal blood pressure Blood pressure disposition: Did not require urgent referral Impression Primary Impression: Chest wall pain Scribe Attestation The scribe's documentation has been prepared under my direction and personally reviewed by me in its entirety. I confirm that the note above accurately reflects all work, treatment, procedures, and medical decision making performed by me. Departure Information Dispostion Home / Self-Care Referrals No Doctor, Assigned (PCP) Patient Instructions Chest Pain - [facility], [facility] Additional Instructions Please return to the emergency department if you have worsening or recurrent symptoms not amenable to at-home treatment. Please call for a follow-up appointment with her primary care physician. Please take your medications as prescribed. If you have other concerns and/or complaints please feel free to also call your primary care physician's office or return the ED for further evaluation, management, and treatment. You may take 600 mg Ibuprofen every 6 hours as needed for pain with food for no more than 2 consecutive days. You may take tylenol 1000 mg every 6 hours as needed for pain. You may take motrin and tylenol separately or at the same time. Take your medications as prescribed. You have been examined and treated today on an emergency basis only. This is not a substitute for, or an effort to provide, complete comprehensive medical care. It is impossible to recognize and treat all injuries or illnesses in a single emergency department visit. It is therefore important that you follow up closely with [facility], your PCP, and/or your specialist(s). Call as soon as possible for an appointment. Thank you for your time and consideration. I look forward to speaking with you again soon. Please don't hesitate to call us if you have any questions.
--- NOTE | 2017-10-10 12:55 | DIAGNOSTIC IMAGING REPORT ---
(CHEST FOR PE) ANGIO WITH CT DOSE: 266.68 mGy.cm HISTORY: 22 years-old Male presents with acute chest tightness TECHNIQUE: Multiple CTA images of the chest were obtained after the intravenous administration of 96 ml Optiray 320. Coronal and sagittal MIPS were obtained from the axial data set and were submitted for review. A dose lowering technique was utilized adhering to the principles of ALARA. COMPARISON: Portable chest radiograph 10/10/2017. FINDINGS: CTA: There is adequate opacification of the pulmonary arteries to the level of the subsegmental branches without convincing evidence of acute pulmonary embolism. thoracic aorta Heart size is normal. CT CHEST: No dominant thyroid nodule is seen, however the thyroid appears mildly heterogeneous. Moderate symmetric bilateral gynecomastia. No pathologically adenopathy by CT size criteria. Mildly prominent AP window lymph nodes are seen measuring up to 8 mm. Residual thymic tissue of the anterior mediastinum. No pneumothorax. Mild dependent subsegmental groundglass opacities suggest atelectasis with trace left pleural effusion. Central airways are patent. The imaged upper abdominal structures are normal. The osseous structures appear intact. IMPRESSION: 1. No acute aortic pathology or evidence of pulmonary thromboembolic disease. 2. Trace left pleural effusion with mild subsegmental dependent bibasilar atelectasis. The above report was generated using voice recognition software. It may contain grammatical, syntax or spelling errors. Electronically signed by: Reji Chang M.D. 10/10/2017 12:53 PM Dictated Date/Time: 10/10/2017 12:48 PM
[2017-10-10 13:41] VITALS: BP 110/73; PULSE 86; O2SAT 99
== END 2017-10-10 13:38 | disposition home or self-care (01) ==
LOC: C.EDB 11:17 → C.EDC 13:38
DX: R07.89 Other chest pain (principal); F32.9 Major depressive disorder, single episode, unspecified; F29 Unspecified psychosis not due to a substance or known physiological condition

== ENCOUNTER → 2017-11-18 | Outpatient (CLI) | payer BC ==
[~2017-11-18] MED LIST changes: +ESCI1TAB6 PO
== END | disposition home or self-care (01) ==
LOC: C.LAB1850 13:39
PROVIDERS: ATTEND Physician Assistant
DX: F41.9 Anxiety disorder, unspecified (principal)